=== PATIENT | male | born 1995 | race Caucasian/White ===

== ENCOUNTER → 2017-07-26 | Outpatient (CLI) | payer OTHER ==
--- NOTE | 2017-07-26 09:59 | DIAGNOSTIC IMAGING REPORT ---
ABDOMEN FOR HERNIA CLINICAL HISTORY: R10.30 Groin painR/o right inguinal hernia vs right cys hernia TECHNIQUE: Pre and post Valsalva ultrasound guided COMPARISON STUDY: None FINDINGS: No evidence for hernia mild central criteria. No evidence for mass or cyst. Benign-appearing 7 x 3 mm lymph node IMPRESSION: 1. Normal study. 2. No evidence for hernia. 3. note is made of a 7 x 3 mm benign-appearing lymph node. The above report was generated using voice recognition software. It may contain grammatical, syntax or spelling errors. Electronically signed by: Wayne Singer M.D. 07/26/2017 9:58 AM Dictated Date/Time: 07/26/2017 9:56 AM
== END | disposition home or self-care (01) ==
LOC: C.ULTR 09:23
PROVIDERS: ATTEND Surgery
DX: R10.30 Lower abdominal pain, unspecified (principal)